=== PATIENT | male | born 1975 | race Hispanic/Latino ===

== ENCOUNTER → 2020-09-30 | Day surgery (SDC) | payer OTHER ==
[~2020-09-30] MED LIST: BIOFLEX TABLET1 EACH PO; FENTANYL CITRATE/PF 100MCG/2 ML INJ ONE; FISH OIL 1,0001 EAC2 PO; IBGARD90 MG PO; IBUPROFEN200 MG PO; LIDOCAINE HCL 2% LOCAL INJ 5 ML SDV VIAL INJ ONE; MAALOX MAXIMUM355 ML PO; MIDAZOLAM HCL 2 MG/2 ML VIAL ONE; MULTI-VITAMIN1 EACH PO; MYLANTA TONIGH355 ML PO; NAPROXEN250 MG PO; OMEPRAZOLE40 MG PO; TUMS ULTRA400 MG PO; TYLENOL # 31 EA PO; VIT D PO
[2020-09-30 12:45] VITALS: BP 110/68
== END | disposition home or self-care (01) ==
LOC: OR 10:04
PROVIDERS: ATTEND Internal Medicine Gastroenterology
DX: K29.50 Unspecified chronic gastritis without bleeding (principal); K44.9 Diaphragmatic hernia without obstruction or gangrene; K31.89 Other diseases of stomach and duodenum; K21.9 Gastro-esophageal reflux disease without esophagitis; B15.9 Hepatitis A without hepatic coma; D72.820 Lymphocytosis (symptomatic); Z01.810 Encounter for preprocedural cardiovascular examination; Z01.812 Encounter for preprocedural laboratory examination; Z20.828 Contact with and (suspected) exposure to other viral communicable diseases
CPT/HCPCS: 43239; 93005; J2001; J2250; J3010; U0002

== ENCOUNTER 2020-10-02 20:45 | Emergency (ER) | payer OTHER ==
[~2020-10-02] VITALS: Ht 172.7 cm; Wt 79.8 kg
[~2020-10-02 20:45] MED LIST changes: -FENTANYL CITRATE/PF 100MCG/2 ML INJ ONE; -LIDOCAINE HCL 2% LOCAL INJ 5 ML SDV VIAL INJ ONE; -MIDAZOLAM HCL 2 MG/2 ML VIAL ONE
[2020-10-02] MEDS ORDERED: PANTOPRAZOLE 40 MG 10ML VIAL IV STA (21:18)
[2020-10-02 21:42] LABS: BASOPHILS % 0.3 % (0.0-1.0); EOSINOPHILS # (AUTO) 0.5 (0.0-0.4); EOSINOPHILS % 5.4 % (0.0-6.0); HEMATOCRIT 41.4 % (38.2-49.6); HEMOGLOBIN 14.4 g/dL (14.0-18.0); LYMPHOCYTES # (AUTO) 2.9 (1.0-3.2); MEAN CORPUSCULAR HEMOGLOBIN 30.4 pg (28-32); MEAN CORPUSCULAR HGB CONC 34.8 g/dL (31-35); MEAN CORPUSCULAR VOLUME 87.3 fL (81-99); MONOCYTES # (AUTO) 0.6 (0.2-0.8); MONOCYTES % 6.4 % (4.4-11.3); NEUTROPHILS # (AUTO) 5.9 (2.1-6.9); NEUTROPHILS % 58.5 % (38.7-80.0); PLATELET COUNT 350 x10e3/uL (140-360); RED BLOOD COUNT 4.74 x10e6/uL (4.3-5.7); RED CELL DISTRIBUTION WIDTH 11.9 % (11.7-14.4)
[2020-10-02 21:57] LABS: ALANINE AMINOTRANSFERASE 123 IU/L (0-55); ALBUMIN 4.8 g/dL (3.5-5.0); ALBUMIN/GLOBULIN RATIO 1.2 (0.8-2.0); ALKALINE PHOSPHATASE 166 IU/L (40-150); AMYLASE 48 U/L (25-125); ANION GAP 16.2 mmol/L (8-16); BLOOD UREA NITROGEN 13 mg/dL (7-26); BUN/CREATININE RATIO 14 (6-25); CALCIUM 10.1 mg/dL (8.4-10.2); CARBON DIOXIDE 24 mmol/L (22-29); CHLORIDE 103 mmol/L (98-107); EST GLOMERULAR FILTRATION RATE > 60 ML/MIN (60-); GLUCOSE 98 mg/dL (74-118); LIPASE 26 U/L (8-78); POTASSIUM 4.2 mmol/L (3.5-5.1); SODIUM 139 mmol/L (136-145)
[2020-10-03 00:19] VITALS: BP 132/85
== END 2020-10-03 00:20 | disposition home or self-care (01) ==
LOC: ER 21:19
DX: R10.11 Right upper quadrant pain (principal); K44.9 Diaphragmatic hernia without obstruction or gangrene; K29.70 Gastritis, unspecified, without bleeding; R94.5 Abnormal results of liver function studies
CPT/HCPCS: 36415; 74022; 76705; 80053; 82150; 83690; 85025; 99284; C9113